=== PATIENT | female | born 1995 | race Caucasian/White ===

== ENCOUNTER 2021-12-20 12:26 | Emergency (ER) | payer OTHER ==
[~2021-12-20] VITALS: Ht 160 cm; Wt 53.5 kg
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
--- NOTE | 2021-12-20 12:46 | NUR ---
WAIVER SIGNED AND PLACED IN PT'S CHART
[2021-12-20] MEDS ORDERED: ACETAMINOPHEN ES 500 MG TABLET ONE (13:04)
[2021-12-20] MEDS ORDERED: IBUPROFEN 600 MG TABLET ONE (13:05)
[2021-12-20] MEDS: ACETAMINOPHEN ES 500 MG TABLET PO ONE (13:07)
[2021-12-20] MEDS: IBUPROFEN 600 MG TABLET PO ONE (13:07)
--- NOTE | 2021-12-20 13:38 | NUR ---
PT TAKEN TO CT [facility]IA [facility]
--- NOTE | 2021-12-20 14:02 | NUR ---
THE PATIENT IS BACK FROM [facility]IA [facility]
[2021-12-20] MEDS ORDERED: IBUP-1957 PO ×2 (14:17→14:22)
[2021-12-20] MEDS ORDERED: METH-647 PO ×2 (14:17→14:22)
[2021-12-20] MEDS ORDERED: METHOCARBAMOL (500MG) 500 MG TABLET ONE (14:26)
[2021-12-20] MEDS: METHOCARBAMOL (500MG) 500 MG TABLET PO ONE (14:28)
[2021-12-20 14:31] VITALS: BP 119/84
--- NOTE | 2021-12-20 14:31 | NUR ---
Patient discharged to home in stable condition. Written and verbal after care instructions given. Patient verbalizes understanding of instruction.
== END 2021-12-20 14:32 | disposition home or self-care (01) ==
LOC: ER 12:28
DX: S16.1XXA Strain of muscle, fascia and tendon at neck level, initial encounter (principal); S50.12XA Contusion of left forearm, initial encounter; S20.212A Contusion of left front wall of thorax, initial encounter; V49.49XA Driver injured in collision with other motor vehicles in traffic accident, initial encounter; Y93.89 Activity, other specified; Y92.89 Other specified places as the place of occurrence of the external cause; Y99.8 Other external cause status
CPT/HCPCS: 70450-TC; 71046; 72125-TC; 73090-TC